=== PATIENT | female | born 1970 | race Caucasian/White ===

== ENCOUNTER → 2021-09-22 | Outpatient (CLI) | payer BC, SELFPAY ==
[2021-09-26 14:15] LABS: HPV APTIMA, High Risk Negative (Negative)
== END | disposition home or self-care (01) ==
LOC: LABSPEC 09-23 09:07
PROVIDERS: Visit Provider Obstetrics & Gynecology
DX: Z12.4 Encounter for screening for malignant neoplasm of cervix (principal)
CPT/HCPCS: 87624; 88175; G0145

== ENCOUNTER 2021-10-30 10:49 | Outpatient (CLI) | payer BC, SELFPAY ==
--- NOTE | 2021-10-30 17:09 | BI_ITS ---
MAMMOGRAPHY - BILATERAL SCREENING REASON FOR EXAM: Female, 50 years old. Routine annual screening examination. PERTINENT HISTORY: Non-contributory. TECHNIQUE: Digital bilateral breast katy (3D mammographic acquisition) in the CC and MLO projections. 2-D mediolateral oblique (MLO) and craniocaudad (CC) views of both breasts were obtained. CAD: Full Field Digital Mammography with Computer Added Detection was performed. COMPARISON: None. Baseline examination. FINDINGS: Breast Composition: There are scattered areas of fibroglandular density. There are no dominant masses or suspicious calcifications. There is a 3.9 mm well-defined nodule in the upper lateral aspect of the left breast. There is also evidence of a 3.4 mm well-defined nodule in the upper outer aspect of the right breast. Correlation with ultrasound is recommended. No other significant abnormalities are identified. BI/SCRN MAMM (CAD)W/KATY BILAT IMPRESSION: Well-defined small nodule seen in the upper outer quadrant of both the right and left breast. Correlation with ultrasound is recommended. ASSESSMENT CATEGORY: BIRADS Category 0: Incomplete. Need additional imaging evaluation. A letter regarding these results will be sent to the patient by the facility within 30 days. Approximately 10% of breast cancers are not detected by mammography. A normal mammogram should not delay biopsy of a clinically suspicious abnormality. [id number] Electronically Signed: Rafael Cook MD at 8:29 EST , Service support ,
== END 2021-10-30 23:59 | disposition short-term general hospital (02) ==
LOC: OPBI 10-31 10:49
PROVIDERS: Referring Provider Student in an Organized Health Care Education/Training Program; Visit Provider Student in an Organized Health Care Education/Training Program
DX: Z12.31 Encounter for screening mammogram for malignant neoplasm of breast (principal)
CPT/HCPCS: 77063; 77067

== ENCOUNTER 2021-11-05 14:59 | Outpatient (CLI) | payer BC, SELFPAY ==
--- NOTE | 2021-11-05 15:01 | US_ITS ---
STUDY: ULTRASOUND BREAST - RIGHT REASON FOR EXAM: Female, 50 years old. Abnormal screening mammogram. TECHNIQUE: Axial and longitudinal images of the RIGHT breast were performed with a high resolution ultrasound transducer. # OF IMAGES: 71 COMPARISON: Comparison is made with prior mammogram dated 04/29/2022. FINDINGS: RIGHT Breast: The upper outer quadrant of the right breast was examined. There is homogeneous fibroglandular tissue. No sonographic and amount is seen. IMPRESSION: No sonographic abnormality is seen. The patient will be recalled for additional views including a true 90 degree lateral and possible compression views. ASSESSMENT CATEGORY: BIRADS Category 0: Incomplete. Need additional imaging evaluation. A letter regarding these results will be sent to the patient by the facility within 30 days. Electronically Signed: Rafael Cook MD at 14:43 EST , STUDY: ULTRASOUND BREAST - LEFT REASON FOR EXAM: Female, 50 years old. Abnormal screening mammogram. TECHNIQUE: Axial and longitudinal images of the LEFT breast were performed with a high resolution ultrasound transducer. # OF IMAGES: 71 COMPARISON: Comparison is made with prior mammogram dated 10/30/2021. FINDINGS: LEFT Breast: The upper outer aspect of the left breast was examined by ultrasound. There is a homogeneous glandular tissue. No sonographic abnormality is seen. The patient will be recalled for additional views. US/Breast Limited Unilateral IMPRESSION: No sonographic and amount is seen. The patient will be recalled for additional views. ASSESSMENT CATEGORY: BIRADS Category 0: Incomplete. Need additional imaging evaluation. A letter regarding these results will be sent to the patient by the facility within 30 days. Electronically Signed: Rafael Cook MD at 14:44 EST ,
== END 2021-11-05 23:59 | disposition short-term general hospital (02) ==
LOC: OPUS 14:59
PROVIDERS: Referring Provider Student in an Organized Health Care Education/Training Program; Visit Provider Student in an Organized Health Care Education/Training Program
DX: N63.10 Unspecified lump in the right breast, unspecified quadrant (principal); N63.20 Unspecified lump in the left breast, unspecified quadrant
CPT/HCPCS: 76642

== ENCOUNTER 2021-11-21 09:03 | Outpatient (CLI) | payer BC, SELFPAY ==
--- NOTE | 2021-11-21 09:31 | BI_ITS ---
MAMMOGRAPHY - BILATERAL DIAGNOSTIC REASON FOR EXAM: Female, 50 years old. Additional views for questionable nodular densities. PERTINENT HISTORY: TECHNIQUE: Compression spot views of both breasts in the mediolateral oblique and craniocaudad projections were obtained. CAD: Full Field Digital Mammography with Computer Added Detection was performed. COMPARISON: Comparison is made with prior mammogram dated generally . FINDINGS: Breast Composition: There are scattered areas of fibroglandular density. The previously seen nodular densities most likely represented vascular structures. No other significant abnormalities are identified. BI/DIAG MAMM W/CAD, BILAT IMPRESSION: Stable bilateral diagnostic mammogram. One year follow-up recommended. (A) ASSESSMENT CATEGORY: BIRADS Category 2: Benign. A letter regarding these results will be sent to the patient by the facility within 30 days. Approximately 10% of breast cancers are not detected by mammography. A normal mammogram should not delay biopsy of a clinically suspicious abnormality. Electronically Signed: Rafael Cook MD at 11:15 EST ,
== END 2021-11-21 23:59 | disposition home or self-care (01) ==
LOC: OPBI 09:29
PROVIDERS: Referring Provider Student in an Organized Health Care Education/Training Program; Visit Provider Student in an Organized Health Care Education/Training Program
DX: R92.2 Inconclusive mammogram (principal)
CPT/HCPCS: 77066